=== PATIENT | male | born 1970 | race Caucasian/White ===

== ENCOUNTER 2021-05-03 08:45 | Outpatient (CLI) | payer MEDICARE, MEDICAID, SELFPAY ==
[2021-05-03 17:07] LABS: Creatinine Urine 120.5 mg/dL
[2021-05-03 17:12] LABS: MALB Creatinine Ratio 40.5 mg/g (0-30); Microalbumin Urine Random 48.8 mg/L (0-16.7)
[2021-05-03 19:14] LABS: Anion Gap 13 mmol/L (8-16); Blood Urea Nitrogen 16 mg/dL (9-20); Calcium 9.9 mg/dL (8.4-10.2); Carbon Dioxide 24 mmol/L (22-30); Chloride 102 mmol/L (98-107); Estimated Glomerular Filt Rate > 60; Glucose 130 mg/dL (75-110); HDL Direct 49 mg/dL; Potassium 4.2 mmol/L (3.4-5.0); Sodium 139 mmol/L (137-145)
[2021-05-03 19:38] LABS: LDL Cholesterol Direct 104 mg/dL
[2021-05-03 20:10] LABS: Vitamin B12 > 1000.0 pg/mL (239-931)
== END 2021-05-03 08:46 | disposition home or self-care (01) ==
LOC: ANHWCLAB 08:49
PROVIDERS: PCP Physician Assistant; Visit Provider Internal Medicine Endocrinology, Diabetes & Metabolism
DX: E11.9 Type 2 diabetes mellitus without complications (principal); E11.65 Type 2 diabetes mellitus with hyperglycemia; E53.8 Deficiency of other specified B group vitamins
CPT/HCPCS: 36415; 80048; 82043; 82607; 83718; 83721; 84443

== ENCOUNTER 2021-11-01 09:31 | Outpatient (CLI) | payer OTHER, SELFPAY ==
[2021-11-01 13:22] LABS: Alanine Aminotransferase 41 U/L (4-50); Albumin Level 4.4 g/dL (3.5-5.1); Alkaline Phosphatase 89 U/L (38-126); Anion Gap 9 mmol/L (8-16); Aspartate Amino Transferase 75 U/L (17-59); Bilirubin,Total 0.9 mg/dL (0.2-1.3); Blood Urea Nitrogen 17 mg/dL (9-20); Calcium 9.7 mg/dL (8.4-10.2); Carbon Dioxide 26 mmol/L (22-30); Chloride 99 mmol/L (98-107); Cholesterol 185 mg/dL (0-200); Estimated Glomerular Filt Rate > 60; Glucose 133 mg/dL (65-110); HDL Direct 41 mg/dL; Potassium 4.1 mmol/L (3.4-5.0); Sodium 134 mmol/L (137-145); Triglycerides 177 mg/dL (<150)
[2021-11-01 13:33] LABS: LDL Cholesterol Direct 99 mg/dL
[2021-11-01 13:38] LABS: Free T4 Free Thyroxine 1.03 ng/mL (0.78-2.19); Vitamin D 25 Hydroxy 19.5 ng/mL
[2021-11-01 13:59] LABS: Microalbumin Urine Random 62.5 mg/L (0-16.7)
[2021-11-01 14:00] LABS: Creatinine Urine 78.4 mg/dL; MALB Creatinine Ratio 79.7 mg/g (0-30)
[2021-11-01 14:21] LABS: Vitamin B12 > 1000.0 pg/mL (239-931)
== END 2021-11-01 09:32 | disposition home or self-care (01) ==
PROVIDERS: PCP Physician Assistant; Visit Provider Nurse Practitioner Family
DX: E11.65 Type 2 diabetes mellitus with hyperglycemia (principal); E11.9 Type 2 diabetes mellitus without complications; E53.8 Deficiency of other specified B group vitamins; E66.01 Morbid (severe) obesity due to excess calories; E78.5 Hyperlipidemia, unspecified; I10 Essential (primary) hypertension
CPT/HCPCS: 36415; 80053; 80061; 82043; 82306; 82607; 84439; 84443

== ENCOUNTER 2023-05-01 08:19 | Outpatient (CLI) | payer MEDICARE, MEDICAID, SELFPAY ==
--- NOTE | ~2023-05-01 | SLEEP.INT_ITS ---
Titration Report Patient Name: MARQUIS GARCIA Study Date: 05/01/2023 Referring Physician: Lacy Black PA-C- Indications for Polysomnography/Sleep History The patient is a 52 year-old male who is 6' and weighs 399.0 lbs. His BMI equals 54.6. A full night titration was performed to evaluate for an improved pressure. He has gained weight since his prior testing in 2008 with ah AH I of 100 with a weight of 340 lb, now 396 lb, was on CPAP 16 cm of water pressure. [place] is 11. Medical History Marquis Garcia is a 52-year-old man with hypertension and diabetes who currently uses CPAP 16 cm. He ra rely awakens from sleep feeling short of breath. He does not awaken at night with heartburn, belching or coughing . He does not snore and does not snore loudly while using his CPAP. He rarely has trouble sleeping with a cold. H e does not wake up gasping for breath at night. He does not have breathing problems at night observed by others. He does not sweat excessively at night or notice his heart pounding or beating irregularly at night. He always falls a sleep during the day, always falls asleep involuntarily, rarely falls asleep while driving. He does not have loss of muscl e tone with strong emotion. He does not have daytime difficulties due to excessive sleepiness. He does not feel paraly zed on waking or falling asleep. He occasionally has vivid dreamlike scenes upon awakening or falling asleep. He poe s not feel afraid to go to sleep. He does not have nightmares. He occasionally remembers his dreams. He rarely has raci ng thoughts. He does not feel sad, depressed, or anxious. He occasionally has muscular tension. He constantly notic es parts of his body jerking. He always kicks at night. He constantly has crawling and aching feelings in his legs. He constantly has leg pain during the night. He does not have morning jaw pain, does not grind his teeth during sleep. He occasionally is bothered by pain during the day. He frequently is awakened by pain during the night. He frequently wakes up feeling stiff in the morning with sore achy muscles and pain in the neck and spine. Normal bedtime is between 11:00 p.m. and 12 midnight, falling asleep within 45 minutes, typically wak ing 5 times during the night to go to the bathroom. It may take 30 minutes for him to return to sleep. He wakes the mo rning at 8:00 a.m.. He estimates getting 5 hours of sleep at night. He takes naps in the afternoon or evening. A short nap lasting 10 or 15 minutes is not refreshing. He is usually drowsy for 3 hours after waking. Feels better in the eveni ng compared to other times of day. Habits: Never smoked tobacco. Caffeine 2-3 servings a day. No alcohol. No recreational substance. Medications Polysomnogram Data A full night polysomnogram using the [facility] multi-channel system recorded the standard phys iologic parameters including EEG, EOG, submentalis EMG, anterior tibialis EMG, EKG, body position, nasal and oral airflow using nasal pressure sensor and thermistor. Respiratory parameters of chest and abdominal movements were recorded with Respiratory Inductance Plethysmography belts. Oxygen saturation was recorded by pulse oximetry. Video monitoring was also performed. Sleep stages, periodic limb movements, and EEG arousals were scored in 30 second epochs according to the criteria of the AASM Scoring Manual. The Apnea-Hypopnea Index was calculated using CMS guidelines for definition of hypopnea while scoring respiratory events. Sleep Architecture The total recording time of the polysomnogram was 457.3 minutes. The total sleep time was 246.5 ronaldo colt. The patient spent 10.1% of total sleep time in Stage N1, 31.8% in Stage N2, 33.1% in Stages N3, and 24.9% in REM. Sleep latency was 63.4 minutes. REM latency was 71.0 minutes. Sleep Efficiency was 53.9%. Wake after S
== END 2023-05-02 07:50 | disposition home or self-care (01) ==
LOC: ANHCSM 08:20
PROVIDERS: PCP Physician Assistant; Visit Provider Physician Assistant
DX: G47.33 Obstructive sleep apnea (adult) (pediatric) (principal); G25.81 Restless legs syndrome
CPT/HCPCS: 95811

== ENCOUNTER 2024-01-20 14:47 | Outpatient (CLI) | payer MEDICARE, MEDICAID, SELFPAY ==
[2024-01-20 17:16] LABS: Anion Gap 9 mmol/L (4-12); Blood Urea Nitrogen 21 mg/dL (9-20); Calcium 10.1 mg/dL (8.4-10.2); Carbon Dioxide 29 mmol/L (22-30); Chloride 99 mmol/L (98-107); Estimated Glomerular Filt Rate > 60; Glucose 202 mg/dL (65-110); HDL Direct 41 mg/dL; Potassium 4.6 mmol/L (3.4-5.0); Sodium 137 mmol/L (137-145)
[2024-01-20 17:28] LABS: LDL Cholesterol Direct 107 mg/dL
[2024-01-20 18:34] LABS: Creatinine Urine 39.9 mg/dL
[2024-01-20 18:38] LABS: MALB Creatinine Ratio 73.2 mg/g (0-30); Microalbumin Urine Random 29.2 mg/L (0-16.7)
[2024-01-20 19:04] LABS: Vitamin D 25 Hydroxy 49.3 ng/mL
== END 2024-01-20 14:48 | disposition home or self-care (01) ==
PROVIDERS: PCP Physician Assistant; Visit Provider Internal Medicine Endocrinology, Diabetes & Metabolism
DX: E78.5 Hyperlipidemia, unspecified (principal); R79.89 Other specified abnormal findings of blood chemistry; E11.65 Type 2 diabetes mellitus with hyperglycemia; E53.8 Deficiency of other specified B group vitamins; Z79.899 Other long term (current) drug therapy
CPT/HCPCS: 36415; 80048; 82043; 82306; 82607; 83718; 83721; 84443

== ENCOUNTER 2024-05-31 16:05 | Outpatient (CLI) | payer MEDICARE, MEDICAID, SELFPAY ==
[2024-05-31 17:08] LABS: Hematocrit 39.6 % (42.0-52.0); Hemoglobin 12.7 g/dL (14.0-18.0); Mean Corpuscular HGB Conc 32.1 g/dl (32-36); Mean Corpuscular Hemoglobin 29.5 pg (26-34); Mean Corpuscular Volume 91.9 fl (80-100); Mean Platelet Volume 9.9 fl (7.4-10.4); Platelet Count Result 200 k/mm3 (150-375); Red Blood Count 4.31 M/mm3 (4.6-6.20); Red Cell Distribution Width 13.1 % (11.5-14.5); White Blood Count 10.1 K/mm3 (4.5-10.0)
[2024-05-31 19:57] LABS: Alanine Aminotransferase 26 U/L (6-50); Albumin Level 4.5 g/dL (3.5-5.1); Alkaline Phosphatase 90 U/L (38-126); Anion Gap 14 mmol/L (4-12); Aspartate Amino Transferase 36 U/L (17-59); Bilirubin,Total 1.2 mg/dL (0.2-1.3); Blood Urea Nitrogen 28 mg/dL (9-20); Calcium 9.4 mg/dL (8.4-10.2); Carbon Dioxide 25 mmol/L (22-30); Chloride 99 mmol/L (98-107); Estimated Glomerular Filt Rate > 60; Glucose 95 mg/dL (65-110); Potassium 4.4 mmol/L (3.4-5.0); Sodium 138 mmol/L (137-145)
[2024-05-31 20:28] LABS: Prostate Specific Antigen 0.3 ng/mL (< OR = 4.0)
[2024-05-31 20:54] LABS: Vitamin B12 > 1000.0 pg/mL (239-931)
== END 2024-05-31 16:06 | disposition home or self-care (01) ==
LOC: ANHLAB 16:22
PROVIDERS: PCP Physician Assistant; Visit Provider Family Medicine
DX: Z12.5 Encounter for screening for malignant neoplasm of prostate (principal); E78.5 Hyperlipidemia, unspecified; I10 Essential (primary) hypertension; E53.8 Deficiency of other specified B group vitamins; E66.01 Morbid (severe) obesity due to excess calories; E66.9 Obesity, unspecified; Z68.43 Body mass index [BMI] 50.0-59.9, adult; G47.33 Obstructive sleep apnea (adult) (pediatric); I25.10 Atherosclerotic heart disease of native coronary artery without angina pectoris; R25.1 Tremor, unspecified; R79.89 Other specified abnormal findings of blood chemistry
CPT/HCPCS: 36415; 80053; 82607; 84153; 85027; G0103

== ENCOUNTER 2024-06-10 13:38 | Outpatient (CLI) | payer MEDICARE, MEDICAID, SELFPAY ==
[2024-06-10 15:54] LABS: Iron 117 ug/dL (49-181)
[2024-06-10 15:56] LABS: Vitamin B12 > 1000.0 pg/mL (239-931)
[2024-06-10 16:04] LABS: Percent Iron Saturation 36 % (20-50)
== END 2024-06-10 13:39 | disposition home or self-care (01) ==
PROVIDERS: PCP Physician Assistant; Visit Provider Family Medicine
DX: D64.9 Anemia, unspecified (principal); R79.89 Other specified abnormal findings of blood chemistry
CPT/HCPCS: 36415; 82607; 82728; 83540; 83550

== ENCOUNTER 2024-06-29 13:25 | Outpatient (CLI) | payer MEDICARE, MEDICAID, SELFPAY ==
[2024-06-29 14:18] LABS: Add Urine Microscopic? NO; Appearance Urine Clear (Clear); Bilirubin Urine Negative (Negative); Blood Urine Negative (Negative); Color Urine Yellow (Yellow); Glucose Urine UA 3+ mg/dL (Negative); Ketones Urine Negative (Negative); Leukocyte Esterase Ur Negative LEU/UL (Negative); Nitrate Urine Negative (Negative); Protein Urine Negative (Negative); Specific Grav Ur 1.019 (1.001-1.035); Urobilinogen Urine 0.2 mg/dL (<2.0); pH Urine 5.5 (5.0-9.0)
[2024-06-29 14:22] LABS: Hematocrit 38.4 % (42.0-52.0); Hemoglobin 12.4 g/dL (14.0-18.0); Immature Reticulocyte Fraction 14.7 % (3.0-15.9); Mean Corpuscular HGB Conc 32.3 g/dl (32-36); Mean Corpuscular Hemoglobin 29.8 pg (26-34); Mean Corpuscular Volume 92.3 fl (80-100); Mean Platelet Volume 10.3 fl (7.4-10.4); Platelet Count Result 196 k/mm3 (150-375); Red Blood Count 4.16 M/mm3 (4.6-6.20); Red Cell Distribution Width 13.2 % (11.5-14.5); Reticulocyte Hemoglobin Conten 31.9 pg (28.2-36.6); Reticulocyte Percent 2.24 % (0.7-4.3); Reticulocytes Absolute 0.09 10^6/uL (0.02-0.10); White Blood Count 9.1 K/mm3 (4.5-10.0)
== END 2024-06-29 13:26 | disposition home or self-care (01) ==
PROVIDERS: PCP Family Medicine; Visit Provider Nurse Practitioner Family
DX: D64.9 Anemia, unspecified (principal)
CPT/HCPCS: 36415; 81003; 85027; 85046

== ENCOUNTER 2025-02-01 00:47 | Day surgery (SDC) | payer MEDICARE, MEDICAID, SELFPAY ==
[2025-01-24 09:51] VITALS: BMI 54.2
--- OUTSIDE RECORDS SUMMARY | 2025-02-01 00:51 | XMS_ITS | Continuity of Care Document ---
Author Organization [facility] [place] [address] [facility] [address] [address] Phone Care Team Providers Care Die Storage Clerk Name Role Phone Bernardo Narvaez MD Unavailable Unavailable Allergies, Adverse Reactions, Alerts Substance Reaction Status Criticality No Known Allergies Active No Inform ation Medications Medication Instructions Dosage Effective Dates (start - stop) Status Comments lisinopril 40 mg tablet take 1 tablet by oral route every day 40 MG - Active furosemide 40 mg tablet take 3 tablet by oral route every day 120 MG - Active atenolol 50 mg tablet take 1 tablet by oral route every day 50 MG - Active atorvastatin 20 mg tablet take 1 tablet by oral route every day 20 MG - Active Humalog KwikPen (U-100) Insulin 100 unit/mL subcutaneous inject by subcutaneous route per prescriber's instructions. Insulin dosing requires individualization. 0.00 - Active Lantus Solostar U-100 Insulin 100 unit/mL (3 mL) subcutaneous pen inject by subcutaneous route as per insulin protocol 0.00 - Active metformin ER 1,000 mg tablet,extended release 24hr take 1 tablet by oral route 2 times every day with the evening meal 1000 MG - Active lisinopril 20 mg tablet take 1 tablet by oral route every day 20 MG - No Longer Active lisinopril 20 mg-hydrochlorothiaz will 25 mg tablet take 1 tablet by oral route 2 times every day 1 tablet - No Longer Active Procedures Procedure Date Eye Exam & Treatment Office/outpatient Visit, Est Removal Of Chalazion Office/outpatient Visit, New Advance Directives Directive Yes / No Effective Date File Name No Information Encounters Encounter Description Practice Location Reason(s) For Visit Diagnoses Date Provider Providers Copied on Encounter [facility], [address] [place] [address] [address], [place], [place], [id number], [place] tel:[phone] SEC [place] KSENIA Professional Complete Exam (chief complaint) History of cellulitisAge -related nuclear cataract, bilateralType 2 diabetes mellitus without complications Apr-0 - 9 Brice Chang. [address], [place], [place], [address], [place]. tel:[phone] Other Provider:, [address], [place], [address]. tel:[phone] ring Provider: Bernardo Reese, [address], [place], [address]. tel:[phone] [place] [facility] [place] [address] [place] [address] [address], [place], [place], [address], [place] tel:[phone] SEC Ignacio MCCORMACK Professional Follow up visit (chief complaint) Hordeolum externum of left upper eyelidPresept al cellulitis of left upper eyelid Oct-0 8 Brice Chang. [address], [place], [place], [address], [place]. tel:[phone] Referring Provider: Bernardo Reese [address], [place], [address]. tel:[phone] Office/outpa tient Visit, [facility] [place], [address] [place] [address] [address], [place], [place], [address], [place] tel:[phone] SEC Ignacio MCCORMACK Professional Evaluation of possible cyst (chief complaint) Preseptal cellulitis of left upper eyelidHordeol um externum of left upper eyelid Sep-2 8 Brice Chang. [address], [place], [place], [address], [place]. tel:[phone] Referring Provider: Veronica Peterson[address] [facility] [address], [place], [address]. tel:[phone] Family History Family Member Type Diagnosis Age At Onset Problem (finding) Family history of Diabe colt mellitus Payers Payer name Insurance type Covered libertarian ID Authoriza tion(s) Medicare [facility] [id number] Medicaid [facility] [id number] Social History Type Description Quantity Date Captured [...]
--- OUTSIDE RECORDS SUMMARY | 2025-02-01 00:51 | XMS_ITS | Clinical Summary ---
Author Organization [facility] Address [address] [place] [address] Care Team Providers Care Solutions Consultant Name Role Phone Ashok Hammer MD Primary Care Provider [phone] Allergies Active Allergy Reactions Criticality Noted Date Comments Shellfish Containing Products Medications allopurinoL (ZYLOPRIM) 100 mg tablet Take 1 tablet (100 mg total) by mouth daily for 20 days 20 tablet 0 Active acetaminophen (TYLENOL) 500 mg tablet Take 2 tablets (1,000 mg total) by mouth every 8 (eight) hours as needed for pain for up to 20 doses 40 tablet 1 Active metFORMIN (FORTAMET) 1,000 mg 24 hr tablet Take 1 tablet (1,000 mg total) by mouth daily with breakfast Active ezetimibe (ZETIA) 10 mg tablet Take 1 tablet (10 mg total) by mouth daily Active amLODIPine (NORVASC) 10 mg tablet Take 1 tablet (10 mg total) by mouth daily Active gabapentin (NEURONTIN) 300 mg capsule Take 1 capsule (300 mg total) by mouth nightly Active atorvastatin (LIPITOR) 80 mg tablet Take 1 tablet (80 mg total) by mouth daily Active lisinopriL (PRINIVIL,ZESTRI L) 40 mg tablet Take 1 tablet (40 mg total) by mouth daily Active dapagliflozin propanediol (FARXIGA) 10 mg tablet Take 1 tablet (10 mg total) by mouth daily Active cyanocobalamin (Vitamin B-12) 100 mcg tablet Take 1 tablet (100 mcg total) by mouth daily Active omega 3-amt-uam-fish oil 1,000 mg (120 mg-180 mg) capsule Take 1 capsule (1,000 mg total) by mouth daily Active cholecalciferol (VITAMIN D-3) 2000 unit tablet Take 1 tablet (2,000 Units total) by mouth daily Active semaglutide (Ozempic) 2 mg/dose (8 mg/3 mL) pen injector injection Inject 2 mg under the skin every 7 days Wednesdays Active insulin regular U-500 (HumuLIN R) 500 unit/mL CONCENTRATED vial for injection Inject 24 unit marking on U-100 syringe (120 Units total) under the skin daily before breakfast Active insulin regular U-500 (HumuLIN R) 500 unit/mL CONCENTRATED vial for injection Inject 11 unit marking on U-100 syringe (55 Units total) under the skin daily before lunch Active insulin regular U-500 (HumuLIN R) 500 unit/mL CONCENTRATED vial for injection Inject 14 unit marking on U-100 syringe (70 Units total) under the skin daily before dinner Active lidocaine (LIDODERM) 5 % Place 1 patch on the skin daily Remove & discard patch within 12 hours or as directed by MD. 14 patch 4 Active polyethylene glycol (MIRALAX) 17 gram/dose bulk powderIndication s:constipation Take 17 g by mouth 2 (two) times a day 1020 g 4 Active senna-docusate (PERICOLACE) 8.6-50 mg Take 1 tablet by mouth daily 30 tablet 4 Active propranolol LA (INDERAL LA) 160 mg 24 hr capsuleIndicatio ns:Tremor Take 1 capsule (160 mg total) by mouth daily 30 capsule 3 5 Active propranolol LA (INDERAL LA) 80 mg 24 hr capsule Take 1 capsule (80 mg total) by mouth daily 025 Discontin ued(Reord er) Active Problems Problem Noted Date Diagnosed Date Right upper quadrant pain 06/22/2024 Assessment & Plan (06/22/2024 3:45 AM CDT): RUQ w/ tenderness to palpation without any accompanying features. Differentials include PUD, gastritis, MSK strain, biliary colic/cholecystitis (unlikely given overall normal lab work), renal colic (unlikely given normal CT), acute pancreatitis (unlikely given normal lipase), or shingles infection given superficial tenderness/sensitivity to light touch. Another possible differential is lymphoma or other malignancy given right sided pelvic lymphadenopathy noted on admission CT scan. No other issues noted on CT. - RUQ US - NPO from midnight - Continue home Gabapentin 300 mg po qhs Type 2 diabetes mellitus, wi thout long-term current use of insulin 06/22/2024 Assessment & Plan (06/22/2024 3:44 AM CDT): Last HbA1c: unknown; BG 142 on admission Home regimen: Insulin u500: 26u w/ breakfast, 11u w/ lunch, 14u w/ dinner; metformin ER 1g po od, Farxiga 10 mg po od, ozempic 2mg sc qw - Pt placed on SSI - Lantus dose 46u qhs - Lispro 16 units qAC - Repeat A1c Essential hypertension 06/22/2024 Assessment & Plan (06/22/2024 3:44 AM CDT): BP stable on amlodipine 10 mg po od, lisinopril 40 mg po od, propanolol ER 80 mg po od - continue same Class 3 severe obesity with body mass index (BMI) of 50.0 to 59.9 in adult 06/22/2024 Chews tobacco 06/22/2024 Assessment & Plan (06/22/2024 3:05 AM CDT): Advised cessation OANH treated with BiPAP 06/22/2024 Assessment & Plan (06/22/2024 3:15 AM CDT): Stable; Continue BiPAP Lymphedema of both lower extremities 06/22/2024 Pelvic lymphadenopathy 06/22/2024 Assessment & Plan (06/22/2024 3:46 AM CDT): CT abdo/pelvis W contrast on admission: enlarged lymph nodes noted along the right pelvic side wall and iliac chain. The largest node measures 2.6 cm x 1.6 cm. 2nd 2.2 cm rounded node is seen also. - consider IR consult for Bx or MRI pelvis - check LDH Mixed hyperlipidemia 06/22/2024 Assessment & Plan (06/22/2024 3:44 AM CDT): Continue home Lipitor 80 mg po od, zetia 10 mg po od Constipation 06/22/2024 Encounters Date Type Department Care Team Description 01/10/2025 1:00 PM CDT Office Visit [facility] [address] [place] [address] [address], [place] [address] Scottie Sebastian MD Essential hypertension (Primary Dx); Tremor from Last 3 Months Surgical History Surgery Date Site/Laterality Comments NO PAST SURGERIES Medical History Medical History Date Comments Type 2 diabetes mellitus, wi thout long-term current use of insulin (HCC) 06/22/2024 Hypertension Class 3 severe obesity with body mass index (BMI) of 50.0 to 59.9 in adult (HCC) 06/22/2024 Essential hypertension 06/22/2024 OANH treated with BiPAP 06/22/2024 Chews tobacco 06/22/2024 Lymphedema of both lower extremities 06/22/2024 Social History Tobacco Use Types Packs/Day Years Used Date Smoking Tobacco: Never Smokeless Tobacco: Current Chew Tobacco Cessation:Ready to Q uit: Not Asked; Counseling Given: Not Answered [facility] Utilities Answer Date Recorded In the past 12 months has [employer], gas, oil, or water [employer] threatened to shut off services in your home? No 06/22/2024 Social Connection and Isolation Panel [NHANES] A nswer Date Recorded In a typical week, how many times do you talk on the phone with family, friends, or neighbors? Twice a week 06/22/20 How often do you get togethe r with friends or relatives? Twice a week 06/22/2024 How often do you attend [facility] ch or methodist services? Never 06/22/2024 Do you belong to any clubs o r organizations such as restoration groups, unions, fraternal or athletic groups, or school groups? No 06/22/2024 How often do you attend meet ings of the clubs or organizations you belong to? Never 06/22/2024 Are you , , di vorced, , never , or living with a partner? Living with partner 06/22/2024 Overall Financial Resource Strain (CARDIA) Answe r Date Recorded How hard is it for you to pa y for the very basics like food, housing, medical care, and heating? Not hard at all 06/22/2024 Hunger Vital Sign Answer Date Recorded Within the past 12 months, y ou worried that your food would run out before you got the money to buy more. Never true 06/22/20 Within the past 12 months, t he food you bought just didn't last and you didn't have money to get more. Never true 06/22/2024 PRAPARE - Transportation Answer Date Re corded In the past 12 months, has l ack of transportation kept you from medical appointments or from getting medications? No 12/2023 In the past 12 months, has l ack of transportation kept you from meetings, work, or from getting things needed for daily living? No 06/22/2024 Housing Stability Vital Sign Answer Curtis e Recorded In the last 12 months, was t here a time when you were not able to pay the mortgage or rent on time? No 06/22/2024 In the past 12 months, how m any times have you moved where you were living? 0 06/22/2024 At any time in the past 12 m [facility], were you homeless or living in a nursing home (including now)? No 06/22/2024 Personal Safety Answer Date Recorded Have you ever been in or are you currently in a harmful physical or emotional relationship or is someone making you feel afraid or unsafe? 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 Gender Identity Not on file Sexual Orientation Not on file Obstetrics History Last Filed Vital Signs Vital Sign Reading Time Taken Comments Blood Pressure 141/75 01/10/2025 1:00 PM CDT Pulse 93 01/10/2025 1:00 PM CDT Temperature 36.5 C (97.7 F) 06/23/2024 3:10 PM CDT Respiratory Rate 16 06/23/2024 3:10 PM CDT Oxygen Saturation 94% 01/10/2025 1:00 PM CDT Inhaled Oxygen Concentration - - Weight 182.9 kg (403 lb 3.2 oz) 01/10/2025 1:00 PM CDT Height 182.9 cm (6' 0.01 ) 01/10/2025 1:00 PM CD T Body Mass Index 54.67 01/10/2025 1:00 PM CDT Plan of Treatment Health Maintenance Due Date Last Done Comments Albumin Creatinine Ratio, Urine 1969 Colon Cancer Screening-Colonoscopy 1969 Depression Screening 1969 Hepatitis C Screening 1969 Prostate Cancer Screening-PSA 1969 Dilated Eye Exam 1969 Foot Exam 1969 Lipid Panel 1969 DTaP/Tdap/Td Vaccine (1 - Tdap) 1980 Hepatitis B Screening 1987 Regular Well Visit/Exam 18-64 1987 Pneumococcal vaccine <65 (1 of 2 - PCV) 1988 Zoster Vaccine (1 of 2) 2019 Influenza Vaccine (#1) 2024 Hemoglobin A1C 12/20/2024 06/22/2024 eGFR 06/23/2025 06/23/2024, 0912/2023, 06/21/2024, Additional history exists Procedures Procedure Name Priority Date/Time Associated Diagnosis Comments EGFR Routine 06/23/2024 6:17 AM CDT HEMOGLOBIN A1C Add-On 06/22/2024 4:32 AM CDT from Last 3 Months or Most Recently Relevant to Health Maintenance Results * eGFR (06/23/2024 6:17 AM CDT) eGFR >90 >=60 mL/min/1. 73 m2 Comment: Interpretive Data Reference Interval Normal >/= 90 mL/min/1.73m2 Mildly decreased* 60 - 89 mL/min/1.73m2 Mildly to moderately decreased 45 - 59 mL/min/1.73m2 Moderately to severely decreased 30 - 44 mL/min/1.73m2 Severely decreased 15 - 29 mL/min/1.73m2 Kidney Failure < 15 mL/min/1.73m2 *Relative to young adult level Estimated glomerular filtration rate is determined by the 2020 CKD-EPI equation recommended by the National Kidney Foundation (A Unifying Approach to GFR Estimation: Recommendations of the NKF-ASK Task Force on Reassessing the Inclusion of Race in Diagnosing Kidney Disease, JASN 2020). The CKD-EPI equation should not be used for patients with unstable renal function and has not been validated in children and those over 70. Current interpretive data was last reviewed 2021. Blood 06/23/2024 6:17 AM CDT 06/23/2024 6:19 AM CDT Selam Garcia MD LAB BLOOD ORDERABLES Fin al Result Performing Organization Address [facility] Co de Phone Number [facility]KE [facility] [facility] [address] [place] [address] * (ABNORMAL) Hemoglobin A1c (06/22/2024 4:32 AM CDT) Hgb A1C 6.7(H) 4.0 - 5.6 % Estimated Average Glucose 146 mg/dL MIKE GUTIERRE[facility] ([place]) Comment: The ADA recommends reporting an estimated Average Glucose (eAG) with all Hemoglobin A1c results using the equation derived from a study of 507 normal and diabetic adults. Minority populations were underrepresented and children were not included. (Diabetes Care 31:9129-4862, 2008). The eAG is not equivalent to a fasting glucose. Blood 06/22/2024 4:32 AM CDT 06/22/2024 4:45 AM CDT Selam Garcia MD LAB BLOOD ORDERABLES Fin al Result Performing Organization Address [facility] Co de Phone Number MIKE [facility] [facility] [address] [place] [address] from Last 3 Months or Most Recently Relevant to Health Maintenance Insurance IDPA MEDICARE IDPA IDPA Advance Directives For more information, please contact: [phone] * Full Code (Latest Code Status on File) Date Activated Date Inactivated Comments 06/22/2024 3:25 AM 06/23/2024 9:17 PM Care Teams Solutions Consultant Relationship Specialty Start Date End Date Ashok Hammer MD PCP - General Family Practice 06/21/24
--- OUTSIDE RECORDS SUMMARY | 2025-02-01 00:51 | XMS_ITS | Encounter Summary ---
Author Organization [facility] Healthcare Address [facility] [place] [address] Care Team Providers Care Community Living Specialist Name Role Phone Augustine Sims Primary Care Provider [phone] Ashok Hammer MD Primary Care Provider [phone] Encounter Details Date Type Department Care Team (Late st Contact Info) Description 04/20/[address] [address] Sandi Sidhu, [facility] Social History Tobacco Use Types Packs/Day Years Used Date Smoking Tobacco: Never Sex and Gender Information Value Date Recorded Sex Assigned at Not on file 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
--- OUTSIDE RECORDS SUMMARY | 2025-02-01 00:51 | XMS_ITS | Referral Summary ---
Author Organization [facility] Address [address] [place] [address] Care Team Providers Care Wharf Operator Name Role Phone Ashok Hammer MD Primary Care Provider [phone] Encounters Date Type Department Care Team Description 01/10/2025 1:00 PM CDT Office Visit [facility] [address] [facility] [address] [place] [address] Scottie Sebastian MD Essential hypertension (Primary Dx); Tremor from Last 3 Months Allergies Active Allergy Reactions Criticality Noted Date [...] mcg total) by mouth daily Active omega 1-cnb-uec-fish oil 1,000 mg (120 mg-180 mg) capsule [...] within 12 hours or as directed by . 14 patch 4 Active polyethylene glycol (MIRALAX) [...] po qhs Type 2 diabetes mellitus, wi out long-term current use of insulin 06/22/2024 Assessment [...] zetia 10 mg po od Constipation 06/22/2024 Social History Tobacco Use Types Packs/Day Years Used Date Smoking Tobacco: Never Smokeless Tobacco: Current Chew Tobacco Cessation:Ready to Q uit: Not Asked; Counseling Given: Not Answered [facility] Utilities Answer Date Recorded In the past 12 months has th [employer], gas, oil, or water [employer] threatened to shut off services in your home? No 06/22/2024 Social Connection and Isolation Panel [NHANES] A nswer Date Recorded In a typical week, how many times do you talk on the phone with family, friends, or neighbors? Twice a week 06/22/20 How often do you get togethe r with friends or relatives? Twice a week 06/22/2024 How often do you attend chur ch or restorationist services? Never 06/22/2024 Do you belong to any clubs o r organizations such as adventist groups, unions, fraternal or athletic groups, or [...] money to buy more. Never true 06/22/20 24 Within the past 12 months, t he [...] any time in the past [facility], were you homeless or living in a nursing home (including now)? No 06/22/2024 Personal Safety Answer Date Recorded Have you ever been in or are you currently in a harmful physical or emotional relationship or is someone making you feel afraid or unsafe? 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 Gender Identity Not on file Sexual Orientation Not on file Last Filed Vital Signs Vital Sign Reading [...] 01/10/2025 1:00 PM CDT Plan of Treatment Not on file Procedures Procedure Name Priority Date/Time Associated Diagnosis [...] MD LAB BLOOD ORDERABLES Fin al Result MIKE BRENDA ([place]) [address] [facility] Department of Laboratories [place], [place] [id number] * (ABNORMAL) Hemoglobin A1c (06/22/2024 4:32 AM CDT) Hgb A1C 6.7(H) 4.0 - 5.6 % Estimated Average Glucose 146 mg/dL MIKE GUTIERREZ ([place]) Comment: The ADA recommends reporting an estimated Average Glucose (eAG) with all Hemoglobin A1c results using the equation derived from a study of 507 normal and diabetic adults. Minority populations were underrepresented and children were not included. (Diabetes Care 31:7636-4467, 2008). The eAG is not equivalent to a fasting glucose. Blood 06/22/2024 4:32 AM CDT 06/22/2024 4:45 AM CDT Selam Garcia MD LAB BLOOD ORDERABLES Fin al Result [facility] [address] [facility] Department [place] [id number] from Last 3 Months or Most Recently Relevant to Health Maintenance Insurance MEDICARE IDDC [facility] MEDICARE ADVANTAGE IDPA Advance Directives For more information, please contact: [phone] * Full Code (Latest Code Status on File) Date Activated Date Inactivated Comments 06/22/2024 3:25 AM 06/23/2024 9:17 PM Care Teams Wharf Operator Relationship Specialty Start Date End Date Ashok Hammer MD PCP - General Family Practice 06/21/24
--- OUTSIDE RECORDS SUMMARY | 2025-02-01 00:51 | XMS_ITS | Clinical Summary ---
Author Organization [facility] Address [address] [place] [address] Phone Care Team Providers Care Computer Repair Engineer Name Role Phone Provider, None Primary Care Provider Unavailabl e Allergies Active Allergy Reactions Criticality Noted Date Comments Iodinated Contrast Media Shortness of Breath Medications lovastatin (MEVACOR) 20 MG Tablet Take 20 mg by mouth daily. Active lisinopril-hydr ochlorothiazide (PRINZIDE, ZESTORETIC) 20-25 MG Tablet Take 1 Tab by mouth daily. Active atenolol (TENORMIN) 50 MG Tablet Take 50 mg by mouth daily. Active linagliptin (TRADJENTA) 5 MG Tablet Take 5 mg by mouth daily. Active insulin detemir (LEVEMIR) 100 UNIT/ML Solution 85 Units by Subcutaneous route nightly. Active [place]-3 Fatty Acids (FISH OIL) 1200 MG Capsule Take 1,200 mg by mouth daily. Active lisinopril (PRINIVIL, ZESTRIL) 20 MG Tablet Take 20 mg by mouth daily. Active metFORMIN (GLUCOPHAGE) 1000 MG Tablet Take 1,000 mg by mouth 2 times daily (with meals). Active Insulin Lispro (HUMALOG KWIKPEN SC)Indications: BREAKFAST AND LUNCH 20 Units by Subcutaneous route See Admin Instructions. Active Insulin Lispro (HUMALOG KWIKPEN SC)Indications: SUPPER 25 Units by Subcutaneous route See Admin Instructions. Active tiZANidine (ZANAFLEX) 2 MG Tablet Take 1 Tab by mouth 3 times daily as needed. 15 Tab 7 Active traMADol (ULTRAM) 50 MG Tablet Take 1 Tab by mouth every 6 hours as needed for Pain for up to 15 doses. 15 Tab 7 Active Insulin Glargine (LANTUS SC) 85 Units by Subcutaneous route. Active atorvastatin (LIPITOR) 20 MG Tablet Take 20 mg by mouth daily. Active ibuprofen (MOTRIN) 600 MG Tablet Take 1 Tab by mouth every 6 hours as needed for Moderate or more severe pain. 30 Tab 9 Active Active Problems Problem Noted Date Diagnosed Date Puncture wound of calf 09/07/2015 Wound of right leg 08/29/2015 Family History Medical History Relation Name Comments Migraines Brother High Cholesterol Father Hypertension Father High Cholesterol Maternal Uncle Congestive Heart Failure Mother Diabetes Mother Heart Attack Mother Hypertension Mother Migraines Mother Migraines Sister Relation Name Status Comments Brother Father Maternal Uncle Mother Sister Social History Tobacco Use Types Packs/Day Years Used Date Smoking Tobacco: Never Smokeless Tobacco: Current Snuff, Chew Alcohol Use Standard Drinks/Week Comments Yes 0 (1 standard drink = 0.6 oz pur e alcohol) VERY RARELY. Sex and Gender Information Value Date Recorded Sex Assigned at Not on file Legal Sex Male 8:02 PM CDT Gender Identity Not on file Sexual Orientation Not on file Last Filed Vital Signs Vital Sign Reading Time Taken Comments Blood Pressure 107/91 01/26/2022 10:30 PM CDT Pulse 100 01/26/2022 10:30 PM CDT Temperature 36.6 C (97.9 F) 01/26/2022 7:38 PM CDT Respiratory Rate 22 01/26/2022 10:15 PM CDT Oxygen Saturation 93% 01/26/2022 10:30 PM CDT Inhaled Oxygen Concentration - - Weight 179.2 kg (395 lb) 01/26/2022 7:38 PM CDT Height 182.9 cm (6') 01/26/2022 7:38 PM CDT Body Mass Index 53.57 01/26/2022 7:38 PM CDT Plan of Treatment Health Maintenance Due Date Last Done Comments Hepatitis C Virus (HCV) Screening 1969 TdaP Immunization 1969 Hepatitis B Immunization (1 of 3 - 19+ 3-dose series) 1988 Colonoscopy 2014 Colorectal Cancer Screening 2014 Cologuard 2019 Immunochemical Fecal Occult Blood 2019 Pneumococcal Immunization (5 0+ years) (1 of 1 - PCV) 2019 Zoster Immunization (1 of 2) 2019 Influenza Immunization (#1) 2024 SARS-COV-2 Immunization (1 - 2023-25 season) 2024 Respiratory Syncytial Virus (RSV) Immunization (Adult) (1 - 1-dose 75+ series) 2044 Meningococcal Immunization (ACWY) Aged Out No longer eligible based on patient's age to complete this topic Rotavirus Immunization Aged Out No lo nger eligible based on patient's age to complete this topic Insurance MEDICAID [place] MEDICARE C [employer] Care Teams Computer Repair Engineer Relationship Specialty Start Date End Date Provider, None [place] PCP - General 01/26/22
[2025-02-01 08:54] VITALS: BP 157/61; PULSE 74; RESP 16; TEMP 36; O2SAT 98
--- NOTE | 2025-02-01 08:59 | P.PNAN_ITS ---
Anes - Initial Pre Proc Eval Procedure: Operation Date: 02/01/25 10:00 Proposed Procedures p Screening Colonoscopy - Rosendo Luacs MD Date/Time: 02/01/25 08:59 Surgeon: Rosendo Lucas MD Pre Op Diagnosis: screening colon Patient Data Age: 54 Gender: M Height: 1.83 m Weight: 183.2 kg Last Vital Signs Temp 36.0 C L 02/01/25 08:54 Pulse 74 02/01/25 08:54 Resp 16 02/01/25 08:54 BP 157/61 H 02/01/25 08:54 Pulse Ox 98 02/01/25 08:54 O2 Del Method Room Air 02/01/25 08:54 Allergies Allergy/AdvReac Type Severity Reaction Status Date / Time iodine Allergy Unknown Flushing Verified 02/01/25 08:50 shellfish Allergy Severe Anaphylactic Uncoded 02/01/25 08:50 Shock Home Medications ?Medication ?Instructions ?Recorded ?Confirmed ?Type omega-3 fatty acids 1,000 mg 1,000 mg PO DAILY 09/06/19 02/01/25 History capsule (Fish Oil Concentrate) cholecalciferol (vitamin D3) 50 50 mcg PO DAILY 07/01/22 02/01/25 History mcg (2,000 unit) capsule pen needle, diabetic 31 gauge x #300 ea 07/22/23 01/24/25 Rx 3/16 (BD Ultra-Fine Mini Pen Needle) gabapentin 300 mg capsule 300 mg PO QHS #30 caps 05/31/24 01/24/25 Rx propranolol 80 mg capsule,24 80 mg PO DAILY #30 caps 05/31/24 02/01/25 Rx hr,extended release flash glucose sensor (FreeStyle #6 ea 07/02/24 01/24/25 Rx Rogerio 14 Day Sensor kit) semaglutide 2 mg/dose (8 mg/3 mL) See Rx Instructions .Route 07/20/24 02/01/25 Rx subcutaneous pen injector (Ozempic) .COMPLEX #9 mL ezetimibe 10 mg tablet See Rx Instructions .Route 08/25/24 02/01/25 Rx .COMPLEX #90 tabs Farxiga 10 mg tablet See Rx Instructions .Route 10/04/24 02/01/25 Rx (dapagliflozin propanediol) .COMPLEX #90 tabs atorvastatin 80 mg tablet See Rx Instructions .Route 10/04/24 02/01/25 Rx .COMPLEX #90 tabs insulin regular hum U-500 conc 500 See Rx Instructions .Route 11/01/24 02/01/25 Rx unit/mL(3 mL) subcut pen (Humulin .COMPLEX #45 mL R U-500 (Conc) Insulin Kwikpen) metformin 1,000 mg tablet See Rx Instructions .Route 11/02/24 02/01/25 Rx .COMPLEX #90 tabs lisinopril 40 mg tablet See Rx Instructions .Route 12/21/24 02/01/25 Rx .COMPLEX #90 tabs amlodipine 10 mg tablet See Rx Instructions .Route 12/27/24 02/01/25 Rx .COMPLEX #90 tabs hydrochlorothiazide 12.5 mg tablet 12.5 mg PO DAILY #90 tabs 01/31/25 02/01/25 Rx Patient hx anesthesia problems: none Family hx anesthesia problems: none Results Review: All pre-operative results and documents have been reviewed as part of the pre- operative evaluation. [facility] Past Medical History Medical History CAD (coronary artery disease) Lymphedema Tremor of both hands Muscular deconditioning Low vitamin D level Hyperlipidemia LDL goal <100 Hypertension BMI 50.0-59.9, adult Cellulitis of left foot Vitamin B12 deficiency Type 2 diabetes mellitus with hyperglycemia Family History Family History Other Depression Diabetes mellitus Family history of alcoholism Family history of cardiovascular disease Family history of congestive heart failure Family history of obesity Hypertension Social History Social History Smoking status: Never smoker Tobacco type: smokeless tobacco Smokeless tobacco user: chewing tobacco Alcohol intake: never Substance use: never Substance use type: does not use Lack of Transportation: No Lack of Food: Never True Current Housing: I Have Housing Concerned About Future Housing: No Difficulty Paying Gas/Electric Bills: No Difficulty Paying for Meds: No Currently Unemployed: No Education: High School Diploma/GED Difficulty w/ Childcare or Family Care: No Living arrangements: with family Gender identity (if verbalized by the patient): Male Spiritual care concerns: No Anes - Eval Final PreProcedure Day of Procedure 02/01/25 08:59 Patient weight: super morbidly obese Heart: regular rate and rhythm Lungs: decreased breath sounds Airway: Mallampati scale class III Neurological: alert and oriented Last oral intake: >/= 8 hours ASA classification: III Emergent: no Anesthetic plan: proceed Anesthesia type and monitoring: general GIVS and standard monitoring Results Review: All pre-operative results and documents have been reviewed as part of the pre- operative evaluation. Informed Consent: The patient's anesthetic plan and its attendant risks and benefits were discussed with the patient/family/POA. Questions were solicited and answers provided to the satisfaction of the patient/family/POA.
[2025-02-01] MEDS: LACTATED RINGERS 1,000 ML 150 ML IV CONT (09:06)
--- NOTE | 2025-02-01 09:21 | PM.HPGS ---
History of Present Illness History of Present Illness Consent: Risks, benefits, and alternatives have been discussed and questions answered. Patient agrees to proceed with procedure. Chief complaint: screening colon Narrative: Marquis Garcia is a 54 year old male here for first screening colonoscopy Review of Systems Review of Systems: All systems reviewed & are unremarkable except as noted in HPI and below PMFSH Past Medical History Medical History CAD (coronary artery disease) Lymphedema Tremor of both hands Muscular deconditioning Low vitamin D level Hyperlipidemia LDL goal <100 Hypertension BMI 50.0-59.9, adult Cellulitis of left foot Vitamin B12 deficiency Type 2 diabetes mellitus with hyperglycemia Family History Family History Other Depression Diabetes mellitus Family history of alcoholism Family history of cardiovascular disease Family history of congestive heart failure Family history of obesity Hypertension Social History Social History Smoking status: Never smoker Tobacco type: smokeless tobacco Smokeless tobacco user: chewing tobacco Alcohol intake: never Substance use: never Substance use type: does not use Lack of Transportation: No Lack of Food: Never True Current Housing: I Have Housing Concerned About Future Housing: No Difficulty Paying Gas/Electric Bills: No Difficulty Paying for Meds: No Currently Unemployed: No Education: High School Diploma/GED Difficulty w/ Childcare or Family Care: No Living arrangements: with family Gender identity (if verbalized by the patient): Male Spiritual care concerns: No Meds Home Medications and Allergies Home Medications ?Medication ?Instructions ?Recorded ?Confirmed ?Type omega-3 fatty acids 1,000 mg 1,000 mg PO DAILY 09/06/19 02/01/25 History capsule (Fish Oil Concentrate) cholecalciferol (vitamin D3) 50 50 mcg PO DAILY 07/01/22 02/01/25 History mcg (2,000 unit) capsule pen needle, diabetic 31 gauge x #300 ea 07/22/23 01/24/25 Rx 3/16 (BD Ultra-Fine Mini Pen Needle) gabapentin 300 mg capsule 300 mg PO QHS #30 caps 05/31/24 01/24/25 Rx propranolol 80 mg capsule,24 80 mg PO DAILY #30 caps 05/31/24 02/01/25 Rx hr,extended release flash glucose sensor (FreeStyle #6 ea 07/02/24 01/24/25 Rx Rogerio 14 Day Sensor kit) semaglutide 2 mg/dose (8 mg/3 mL) See Rx Instructions .Route 07/20/24 02/01/25 Rx subcutaneous pen injector (Ozempic) .COMPLEX #9 mL ezetimibe 10 mg tablet See Rx Instructions .Route 08/25/24 02/01/25 Rx .COMPLEX #90 tabs Farxiga 10 mg tablet See Rx Instructions .Route 10/04/24 02/01/25 Rx (dapagliflozin propanediol) .COMPLEX #90 tabs atorvastatin 80 mg tablet See Rx Instructions .Route 10/04/24 02/01/25 Rx .COMPLEX #90 tabs insulin regular hum U-500 conc 500 See Rx Instructions .Route 11/01/24 02/01/25 Rx unit/mL(3 mL) subcut pen (Humulin .COMPLEX #45 mL R U-500 (Conc) Insulin Kwikpen) metformin 1,000 mg tablet See Rx Instructions .Route 11/02/24 02/01/25 Rx .COMPLEX #90 tabs lisinopril 40 mg tablet See Rx Instructions .Route 12/21/24 02/01/25 Rx .COMPLEX #90 tabs amlodipine 10 mg tablet See Rx Instructions .Route 12/27/24 02/01/25 Rx .COMPLEX #90 tabs hydrochlorothiazide 12.5 mg tablet 12.5 mg PO DAILY #90 tabs 01/31/25 02/01/25 Rx Allergies Allergy/AdvReac Type Severity Reaction Status Date / Time iodine Allergy Unknown Flushing Verified 02/01/25 08:50 shellfish Allergy Severe Anaphylactic Uncoded 02/01/25 08:50 Shock Vital Signs Vital Signs - 24 hr 02/01/25 08:54 Temperature 96.8 F L Pulse Rate 74 Respiratory Rate 16 Blood Pressure 157/61 H Pulse Oximetry 98 Oxygen Delivery Room Air Exam Const: General: comfortable and no acute distress HENMT: Face/Nose/Sinus: Normal nares present Eyes: General: appearance normal, both eyes and all related structures Neck: Neck: no JVD Resp: Auscultation: clear to auscultation bilaterally Cardio: Rate: regular rate Rhythm: regular rhythm GI: Inspection: non-distended GI Palp: Yes Soft to palpation Skin: General skin exam: normal color Neuro: Speech: normal speech Extrem: General: normal to inspection Psych: Mental Status: mental status grossly normal Assessment and Plan Assessment and plan (1) Colon cancer screening: Code(s): Z12.11 - Encounter for screening for malignant neoplasm of colon Status: Acute Assessment and Plan: colonoscopy
[2025-02-01 09:24] LABS: Glucose Point of Care 177 mg/dl (65-105)
[2025-02-01 09:42] VITALS: BP 104/50; PULSE 71; RESP 22; O2SAT 100
[2025-02-01 09:52] VITALS: BP 105/51; PULSE 70; RESP 23; O2SAT 99
[2025-02-01 10:02] VITALS: BP 127/63; PULSE 72; RESP 18; O2SAT 99
[2025-02-01 10:15] LABS: Glucose Point of Care 176 mg/dl (65-105)
== END 2025-02-01 10:23 | disposition home or self-care (01) ==
PROVIDERS: PCP Family Medicine; Referring Provider Family Medicine; Visit Provider Internal Medicine Gastroenterology
PROC: 0DJD8ZZ Inspection of Lower Intestinal Tract, Via Natural or Artificial Opening Endoscopic (ICD-10-PCS; CPT 45378; principal; 2025-02-01 10:00)
DX: Z12.11 Encounter for screening for malignant neoplasm of colon (principal); D12.3 Benign neoplasm of transverse colon; D12.4 Benign neoplasm of descending colon; D12.5 Benign neoplasm of sigmoid colon; E78.5 Hyperlipidemia, unspecified; I10 Essential (primary) hypertension; E53.8 Deficiency of other specified B group vitamins; E11.65 Type 2 diabetes mellitus with hyperglycemia; I25.10 Atherosclerotic heart disease of native coronary artery without angina pectoris; E55.9 Vitamin D deficiency, unspecified; R25.1 Tremor, unspecified; F17.220 Nicotine dependence, chewing tobacco, uncomplicated; E66.01 Morbid (severe) obesity due to excess calories; Z68.43 Body mass index [BMI] 50.0-59.9, adult; Z79.85 Long-term (current) use of injectable non-insulin antidiabetic drugs; Z79.84 Long term (current) use of oral hypoglycemic drugs; Z79.4 Long term (current) use of insulin; Z82.49 Family history of ischemic heart disease and other diseases of the circulatory system
CPT/HCPCS: 45385; 82948; 88305; J2704; J7120

== ENCOUNTER 2025-03-22 14:11 | Outpatient (CLI) | payer MEDICARE, MEDICAID, SELFPAY ==
--- OUTSIDE RECORDS SUMMARY | 2025-03-22 14:15 | XMS_ITS | Clinical Summary ---
Author Organization [facility] Address [address] [place] [address] Care Team Providers Care Bad Credit Collector Name Role Phone Ashok Hammer MD Primary Care Provider [phone] Allergies Active Allergy Reactions Criticality Noted Date [...] mg total) by mouth daily Active lisinopriL (PRINIVIL,ZESTRIL ) 40 mg tablet Take 1 tablet (40 mg total) by mouth daily Active dapagliflozin propanediol (FARXIGA) 10 mg tablet Take 1 tablet (10 mg total) by mouth daily Active cyanocobalamin (Vitamin B-12) 100 mcg tablet Take 1 tablet (100 mcg total) by mouth daily Active omega 1-ggu-syq-fish oil 1,000 mg (120 mg-180 mg) capsule [...] Active polyethylene glycol (MIRALAX) 17 gram/dose bulk powderIndications :constipation Take 17 g by mouth 2 (two) times a day 1020 g 4 Active senna-docusate (PERICOLACE) 8.6-50 mg Take 1 tablet by mouth daily 30 tablet 4 Active propranolol LA (INDERAL LA) 160 mg 24 hr capsuleIndication s:Tremor Take 1 capsule (160 mg total) by mouth daily 30 capsule 3 5 Active Active Problems Problem Noted Date Diagnosed [...] Description 01/10/2025 1:00 PM CDT Office Visit [facility] [address] [place] [address] Scottie Sebastian MD Essential hypertension (Primary Dx); Tremor from Last 3 Months Surgical History Surgery Date Site/Laterality Comments NO PAST SURGERIES Medical History Medical History Date Comments Type 2 diabetes mellitus, wi thout long-term current use of insulin (HCC) 06/22/2024 Hypertension Class 3 severe obesity with body mass index (BMI) of 50.0 to 59.9 in adult 06/22/2024 Essential hypertension 06/22/2024 OANH treated with BiPAP 06/22/2024 Chews tobacco 06/22/2024 Lymphedema of both lower extremities 06/22/2024 Social History Tobacco Use Types Packs/Day Years Used Date Smoking Tobacco: Never Smokeless Tobacco: Current Chew Tobacco Cessation:Ready to Q uit: Not Asked; Counseling Given: Not Answered [facility] Utilities Answer Date Recorded In the past 12 months has th e [employer], gas, oil, or water company threatened to shut off services in your [...] often do you attend chur ch or voodoo services? Never 06/22/2024 Do you belong to any clubs o r organizations such as muslim groups, unions, fraternal or athletic groups, or [...] any time in the past 12 m [facility], were you homeless or living in a long term (including now)? No 06/22/2024 Personal Safety Answer Date Recorded Have you ever been in or are you currently in a harmful physical or emotional relationship or is someone making you feel afraid or unsafe? 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 [address] * (ABNORMAL) Hemoglobin A1c (06/22/2024 4:32 AM CDT) Hgb A1C 6.7(H) 4.0 - 5.6 % Estimated Average Glucose 146 mg/dL MIKE GUTIERREZ ([place]) Comment: The ADA recommends reporting an estimated Average Glucose (eAG) with all Hemoglobin A1c results using the equation derived from a study of 507 normal and diabetic adults. Minority populations were underrepresented and children were not included. (Diabetes Care 31:3558-8174, 2008). The eAG is not equivalent to a fasting glucose. Blood 06/22/2024 4:32 AM CDT 06/22/2024 4:45 AM CDT Selam Garcia MD LAB BLOOD ORDERABLES Fin al Result Performing Organization Address [facility] Co de Phone Number MIKE GUTIERREZ ([place]) 1 [facility] [place] [address] from Last 3 Months or Most Recently Relevant to Health Maintenance Insurance [employer]PA MEDICARE [facility] Address: [address] [address] [place] [address] IDPA [facility] MEDICARE [facility] Address: [address] [address] [place] [address] IDPA Advance Directives For more information, please contact: [phone] * Full Code (Latest Code Status on File) Date Activated Date Inactivated Comments 06/22/2024 3:25 AM 06/23/2024 9:17 PM Care Teams Bad Credit Collector Relationship Specialty Start Date End Date Ashok Hammer MD PCP - General Family Practice 06/21/24
--- OUTSIDE RECORDS SUMMARY | 2025-03-22 14:15 | XMS_ITS | Referral Summary ---
Author Organization [facility] Address [address] [place] [address] Care Team Providers Care Tour Operator Name Role Phone Ashok Hammer MD Primary Care Provider [phone] Encounters Date Type Department Care Team Description 01/10/2025 1:00 PM CDT Office Visit [facility] [address] [facility] [address] [place] [address] Scottie Sebastian MD Essential hypertension [...] mcg total) by mouth daily Active omega 1-bwy-yla-fish oil 1,000 mg (120 mg-180 mg) capsule [...] po qhs Type 2 diabetes mellitus, wi [facility] long-term current use of insulin 06/22/2024 Assessment [...] uit: Not Asked; Counseling Given: Not Answered [facility] Utilities Answer Date Recorded In the past 12 months has th e [employer], [employer], oil, or water [employer] threatened to shut off services in your [...] often do you attend chur ch or denominational services? Never 06/22/2024 Do you belong to any clubs o r organizations such as pentecostal groups, unions, fraternal or athletic groups, or [...] any time in the past 12 m [facility], were you homeless or living in a fpc (including now)? No 06/22/2024 Personal Safety Answer Date Recorded Have you ever been in or are you currently in a harmful physical or emotional relationship or is someone making you feel afraid or unsafe? 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 Gender Identity Not on file Sexual Orientation [...] ORDERABLES Fin al Result Performing Organization Address City/[facility] Co de Phone Number MIKE [facility] ([place]) 1 [facility] [place] [address] * (ABNORMAL) Hemoglobin A1c (06/22/2024 4:32 AM CDT) [facility] Signature Hgb A1C 6.7(H) 4.0 - 5.6 % Estimated Average Glucose 146 mg/dL MIKE GUTIERREZ ([place]) Comment: The ADA recommends reporting an estimated Average Glucose (eAG) with all Hemoglobin A1c results using the equation derived from a study of 507 normal and diabetic adults. Minority populations were underrepresented and children were not included. (Diabetes Care 31:3796-0154, 2008). The eAG is not equivalent to a fasting glucose. Blood 06/22/2024 4:32 AM CDT 06/22/2024 4:45 AM CDT Selam Garcia MD LAB BLOOD ORDERABLES Fin al Result Performing Organization Address City/[facility]/ZIP Co de Phone Number MIKE GUTIERREZ ([place]) 1 [facility] [place] [address] from Last 3 Months or Most Recently Relevant to Health Maintenance Insurance [facility] [employer] U[employer] MEDICARE ADVANTAGE IDPA Advance Directives For more information, please contact: [phone] * Full Code (Latest Code Status on File) Date Activated Date Inactivated Comments 06/22/2024 3:25 AM 06/23/2024 9:17 PM Care Teams Tour Operator Relationship Specialty Start Date End Date Ashok Hammer MD PCP - General Family Practice 06/21/24
--- OUTSIDE RECORDS SUMMARY | 2025-03-22 14:15 | XMS_ITS | Clinical Summary ---
Author Organization [facility] Address [address] [place] [address] Phone Care Team Providers Care Hvac Design Engineer Name Role Phone Provider, None Primary [...] 85 Units by Subcutaneous route nightly. Active [place]am[place]-3 Fatty Acids (FISH OIL) 1200 MG Capsule [...] 2019 Zoster Immunization (1 of 2) 2019 SARS-COV-2 Immunization (1 - 2023- season) 2024 Influenza Immunization (Seas on Ended) 2025 Respiratory Syncytial Virus (RSV) Immunization (Adult) (1 - 1-dose 75+ series) 2044 Human Papillomavirus (HPV) Immunization Aged Out No longer eligible b ased on patient's age to complete this topic Meningococcal Immunization (ACWY) Aged Out No longer eligible based on patient's age to complete this topic Rotavirus Immunization Aged Out No lo nger eligible based on patient's age to complete this topic Insurance MEDICAID [place] MEDICARE C [place] Care Teams Hvac Design Engineer Relationship Specialty Start Date End Date Provider, None [place] PCP - General 01/26/22
--- OUTSIDE RECORDS SUMMARY | 2025-03-22 14:15 | XMS_ITS | Continuity of Care Document ---
Author Organization [facility] Address [address] [place] [address] Phone Care Team Providers Care Post Doc Fellowship Name Role Phone Bernardo Narvaez MD Unavailable [...] Diagnoses Date Provider Providers Copied on Encounter [facility], [address] [place] [address] [address], [place], [place], [id number], [place] tel:[phone] SEC Carrie KSENIA Professional Complete Exam (chief complaint) History of cellulitisAge -related nuclear cataract, bilateralType 2 diabetes mellitus without complications Apr-0 - 9 Brice Chang. [address], [place], [place], [id number], [place]. tel:[phone] Other Provider:, [address], [place], [address]. tel:[phone] ring Provider: Bernardo Reese, [address], [place], [address]. tel:[phone] Office/outpa tient Visit, [facility], [address] [place] [address] [address], [place], [place], [id number], [place] tel:[phone] SEC Ignacio MCCORMACK Professional Follow up visit (chief complaint) Hordeolum externum of left upper eyelidPresept al cellulitis of left upper eyelid Oct-0 8 Brice Chang. [address], [place], [place], [address], [place]. tel:[phone] Referring Provider: Bernardo Reese [address], [place], [address]. tel:[phone] Office/outpa tient Visit, [facility], [address] [place] [address] [address], [place], [place], [address], [place] tel:[phone] SEC Ignacio MCCORMACK Professional Evaluation of possible cyst (chief complaint) Preseptal cellulitis of left upper eyelidHordeol um externum of left upper eyelid Sep-2 8 Brice Chang. [address], [place], [place], [address], [place]. tel:[phone] Referring Provider: Veronica [address] [facility] [address], [place], [address]. tel:[phone] Family History Family Member Type Diagnosis Age At Onset Problem (finding) Family history of Diabe colt mellitus Payers Payer name Insurance type Covered libertarian ID Authoriza tion(s) Medicare [facility] [id number] Medicaid [facility] [id number] Social History Type Description Quantity Date Captured [...]
--- OUTSIDE RECORDS SUMMARY | 2025-03-22 14:15 | XMS_ITS | Encounter Summary ---
Author Organization [facility] Healthcare Address [facility] [place] [address] Care Team Providers Care Farm Equipment Technician Name Role Phone Augustine Sims Primary Care Provider Ashok Hammer MD Primary Care Provider [phone] Encounter Details Date Type Department Care Team (Late st Contact Info) Description 04/20/[address] [address] Sandi Sidhu, [facility] Social History Tobacco Use Types Packs/Day Years Used Date Smoking Tobacco: Never Sex and Gender Information Value Date Recorded Sex Assigned at Not on file Legal Sex Male 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
[2025-03-22 15:13] LABS: Hematocrit 38.7 % (42.0-52.0); Hemoglobin 12.5 g/dL (14.0-18.0); Mean Corpuscular HGB Conc 32.3 g/dl (32-36); Mean Corpuscular Hemoglobin 29.1 pg (26-34); Mean Corpuscular Volume 90.2 fl (80-100); Mean Platelet Volume 10.1 fl (7.4-10.4); Platelet Count Result 217 k/mm3 (150-375); Red Blood Count 4.29 M/mm3 (4.6-6.20); Red Cell Distribution Width 13.1 % (11.5-14.5); White Blood Count 9.4 K/mm3 (4.5-10.0)
[2025-03-22 15:55] LABS: Vitamin D 25 Hydroxy 40.8 ng/mL
[2025-03-22 16:55] LABS: Hemoglobin A1C 7.9 % (<5.7)
[2025-03-22 17:39] LABS: Alanine Aminotransferase 23 U/L (6-50); Albumin Level 4.5 g/dL (3.5-5.1); Alkaline Phosphatase 90 U/L (38-126); Anion Gap 12 mmol/L (4-12); Aspartate Amino Transferase 30 U/L (17-59); Blood Urea Nitrogen 32 mg/dL (9-20); Calcium 10.1 mg/dL (8.4-10.2); Carbon Dioxide 26 mmol/L (22-30); Chloride 102 mmol/L (98-107); Estimated Glomerular Filt Rate > 60; Glucose 151 mg/dL (65-110); Potassium 4.5 mmol/L (3.4-5.0); Sodium 140 mmol/L (137-145); Total Protein 8.4 g/dL (6.3-8.2)
== END 2025-03-22 14:12 | disposition home or self-care (01) ==
PROVIDERS: PCP Family Medicine; Visit Provider Family Medicine
DX: I89.0 Lymphedema, not elsewhere classified (principal); R25.1 Tremor, unspecified; I25.10 Atherosclerotic heart disease of native coronary artery without angina pectoris; G47.33 Obstructive sleep apnea (adult) (pediatric); E66.01 Morbid (severe) obesity due to excess calories; R79.89 Other specified abnormal findings of blood chemistry; I10 Essential (primary) hypertension
CPT/HCPCS: 36415; 80053; 82306; 82607; 83036; 85027

== ENCOUNTER 2025-08-15 15:18 | Outpatient (CLI) | payer MEDICARE, MEDICAID, SELFPAY ==
--- OUTSIDE RECORDS SUMMARY | 2019-01-22 08:00 | XMS_ITS | Continuity of Care Document ---
Author Organization [employer] [facility] [place] [address] [address] [place] [address] Phone Care Team Providers Care Security Tech Name Role Phone Bernardo Narvaez MD Unavailable Unavailable Allergies, Adverse Reactions, Alerts Substance Reaction Status Criticality No Known Allergies Active No Inform ation Medications Medication Instructions Dosage Effective Dates (start - stop) Status Comments furosemide 40 mg tablet take 3 tablet by oral route every day 120 MG - Active lisinopril 40 mg tablet take 1 tablet by oral route every day 40 MG - Active metformin ER 1,000 mg tablet,extended release 24hr take 1 tablet by oral route 2 times every day with the evening meal 1000 MG - Active Lantus Solostar U-100 Insulin 100 unit/mL (3 mL) subcutaneous pen inject by subcutaneous route as per insulin protocol 0.00 - Active Humalog KwikPen (U-100) Insulin 100 unit/mL subcutaneous inject by subcutaneous route per prescriber's instructions. Insulin dosing requires individualization. 0.00 - Active atorvastatin 20 mg tablet take 1 tablet by oral route every day 20 MG - Active atenolol 50 mg tablet take 1 tablet by oral route every day 50 MG - Active lisinopril 20 mg-hydrochlorothiaz will 25 mg tablet take 1 tablet by oral route 2 times every day 1 tablet - No Longer Active lisinopril 20 mg tablet take 1 tablet by oral route every day 20 MG - No Longer Active Procedures Procedure Date Eye Exam & Treatment Office/outpatient Visit, Est Removal Of Chalazion Office/outpatient Visit, New Advance Directives Directive Yes / No Effective Date File Name No Information Encounters Encounter Description Practice Location Reason(s) For Visit Diagnoses Date Provider Providers Copied on Encounter [facility], [address] [place] [address] [address], [place], [place], [id number], [place] tel:[phone] SEC Charlotte KSENIA Professional Complete Exam (chief complaint) History of cellulitisAge -related nuclear cataract, bilateralType 2 diabetes mellitus without complications Apr-0 - 9 Brice Chang. [address], [place], [place], [address], [place]. tel:[phone] Other Provider:, [address], [place], [address]. tel:[phone] ring Provider: Bernardo Reese, [address], [place], [address]. tel:[phone] Office/outpa [place]ient Visit, [facility] [place], [address] [place] [address] [address], [place], [place], [address], [place] tel:[phone] SEC Ignacio MCCORMACK Professional Follow up visit (chief complaint) Hordeolum externum of left upper eyelidPresept al cellulitis of left upper eyelid Oct-0 8 Brice Chang. [address], [place], [place], [address], [place]. tel:[phone] Referring Provider: Bernardo Reese [address], [place], [address]. tel:[phone] Office/outpa tient Visit, [facility], [id number] [place] [address] [address], [place], [place], [address], [place] tel:[phone] SEC Ignacio MCCORMACK Professional Evaluation of possible cyst (chief complaint) Preseptal cellulitis of left upper eyelidHordeol um externum of left upper eyelid Sep-2 8 Brice Chang. [address], [place], [place], [address], [place]. tel:[phone] Referring Provider: Veronica Peterson[address] [facility] [address], [place], [address]. tel:[phone] Family History Family Member Type Diagnosis Age At Onset Problem (finding) Family history of Diabe colt mellitus Payers Payer name Insurance type Covered constitution party ID Authoriza tion(s) Medicare [facility] [id number] Medicaid [facility] [id number] Social History Type Description Quantity Date Captured Comments Alcohol Use Details No Caffeine Use Details Tobacco Use Status Current non-smoker 19 Smoking Status Never smoker Non-Smoking Tobacco Use Details : No Details Available : No Details Available Sex Male Chief Complaint And Reason For Visit From encounter dated '01/22/2019 13:00'. Complete Exam (chief complaint). Description: The 48 year old male presents for evaluation of Complete Exam in the right eye and left eye. Hx of Cataracts OU, Hordeolum PORTILLO, and Preceptal Cellulitis PORTILLO. Pt states vision is clear and stable OU at distance and near x 3-4 mos, with new Specs. Reason For Referral Reason For Referral No Information Plan Of Treatment Date Type Action Status Patient Education Cataracts: Care Instruc tions completed Patient Education Learning About Your Eye s completed History Of Present Illness Encounter Date Complaint History Of Prese nt Illness Complete Exam The 48 year old male presents for evaluation of Complete Exam in the right eye and left eye. Hx of Cataracts OU, Hordeolum PORTILLO, and Preceptal Cellulitis PORTILLO. Pt states vision is clear and stable OU at distance and near x 3-4 mos, with new Specs. Follow up visit The 47 year old male presents for a 2 week follow up s/p I&D PORTILLO. Patient is finished with drops and Augmentin. Patient states OS is doing good. Evaluation of possible cyst The 47 year old male presents for evaluation of Evaluation of possible cyst in the left eye. Pt denies any ocular injuries or Sx, OU. Pt is DM II. Pt reports he has a bump/stye on PORTILLO x 3 wks and it hurts. Pt reports he went to the ER about a week ago and got Tobradex using it QD-BID OS. Pt reports he thought it was getting a little better 2 days ago, but then it got worse again. Pt reports he thought it was better again last night, but flared up again this am. Functional Status Date Functional Assessmen t No Information Instructions Date Instruction Additional Infor cullen Impression/Plan Impression/Plan Educational material given Relat ed to Chalazion of left upper eyelid Impression/Plan Assessments Type Assessment Date assessment History of cellulitis 9 assessment Age-related nuclear cataract, bi lateral assessment Type 2 diabetes mellitus without complications Patient Care Teams Name Effective Dates (start - stop) Status Members No Information
--- NOTE | ~2025-08-15 | CT_ITS ---
PROCEDURE(S): CT paranasal sinuses without contrast COMPARISON(S): None. 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 Both middle turbinates are paradoxical. 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 Both ostiomeatal complexes are patent. There is moderate nasal septal deviation to the left. There is a 14 mm polyp versus mucous retention cyst in the right ethmoid sinuses. The remainder of the sinuses are clear. IMPRESSION: Small polyp versus mucous retention cyst as described. Reviewed, dictated and finalized at location A.
--- OUTSIDE RECORDS SUMMARY | 2025-08-15 16:51 | XMS_ITS | Clinical Summary ---
Author Organization [facility] Address [address] [place] [address] Phone Care Team Providers Care Inside Polisher Name Role Phone Provider, None Primary Care [...] 85 Units by Subcutaneous route nightly. Active [place]-3 Fatty Acids (FISH OIL) 1200 MG Capsule [...] of 3 - 19+ 3-dose series) 1988 Medicare Initial AWV [id number] 03/20/2014 Cologuard 2014 Colonoscopy 2014 Colorectal Cancer Screening 2014 Immunochemical Fecal Occult Blood 2014 Pneumococcal Immunization (5 0+ years) (1 of 1 - PCV) 2019 Zoster Immunization (1 of 2) 2019 Influenza Immunization (#1) 2025 SARS-COV-2 Immunization (1 - 2023- season) 2025 Respiratory Syncytial Virus (RSV) Immunization (Adult) [...] MEDICAID [place] MEDICARE C [place] Care Teams Inside Polisher Relationship Specialty Start Date End Date Provider, None [place] PCP - General 01/26/22
--- OUTSIDE RECORDS SUMMARY | 2025-08-15 16:51 | XMS_ITS | Encounter Summary ---
Author Organization [facility] Healthcare Address [address] [place] [address] Care Team Providers Care Manager Career Name Role Phone Augustine Sims Primary Care Provider [phone] Ashok Hammer MD Primary Care Provider [phone] Encounter Details Date Type Department Care Team (Late st Contact Info) Description 04/20/2020 Telephone [facility] [address] [place] [address] Sandi Sidhu, [facility] Social History Tobacco Use Types Packs/Day Years Used Date Smoking Tobacco: Never Sex and Gender Information Value Date Recorded Sex Assigned at Not on file Legal Sex Male 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
--- OUTSIDE RECORDS SUMMARY | 2025-08-15 16:51 | XMS_ITS | Clinical Summary ---
Author Organization [facility] Address [address] [place] [address] Care Team Providers Care Recovery Specialist Name Role Phone Ashok Hammer MD Primary Care Provider [phone] Allergies Active Allergy Reactions Criticality Noted Date Comments Iodine Anaphylaxis High 04/12/2025 Shellfish Containing Products Anaphylaxis High Medications allopurinoL (ZYLOPRIM) 100 mg tablet Take [...] mcg total) by mouth daily Active omega 9-kwl-ldj-fish oil 1,000 mg (120 mg-180 mg) capsule [...] under the skin daily before dinner Active propranolol LA (INDERAL LA) 160 mg 24 hr capsuleIndicatio ns:Tremor Take 1 capsule (160 mg total) by mouth daily 30 capsule 3 5 Active topiramate (TOPAMAX) 50 mg tablet Take half tablet (25 mg) po twice a day for one week, then one tablet po twice a day 60 tablet 3 5 Active amoxicillin (AMOXIL) 875 mg tabletIndication s:Non-recurrent acute serous otitis media of both ears Take 1 tablet (875 mg total) by mouth 2 (two) times a day for 7 days 14 tablet 5 07/26/20 25 Active Problems Problem Noted Date Diagnosed Date Essential tremor 04/17/2025 Right upper quadrant pain 06/22/2024 Assessment & [...] Encounters Date Type Department Care Team Description 07/19/2025 3:45 PM CDT Office Visit [facility]ient Care at [address] [place] [address] Staci Garzon NP Non-recurrent acute serous otitis media of both ears (Primary Dx); Nasal dryness from Last 3 Months Surgical History Surgery Date Site/Laterality Comments NO PAST SURGERIES Medical History Medical History Date Comments Type 2 diabetes mellitus, wi thout long-term current use of insulin 06/22/2024 Hypertension Class 3 severe obesity with body mass index (BMI) of 50.0 to 59.9 in adult 06/22/2024 Essential hypertension 06/22/2024 OANH treated with BiPAP 06/22/2024 Chews tobacco 06/22/2024 Lymphedema of both lower extremities 06/22/2024 Social History Tobacco Use Types Packs/Day Years Used Date Smoking Tobacco: Never Smokeless Tobacco: Current Chew Tobacco Cessation:Ready to Q uit: Not Asked; Counseling Given: Not Answered [facility] Utilities Answer Date Recorded In the past 12 months has th e electric, gas, oil, or water [employer] threatened to shut off services in your home? No 06/22/2024 Social Connection and Isolation Panel Answer Date Recorded In a typical week, how many times do you talk on the phone with family, friends, or neighbors? Twice a week 06/22/20 How often do you get togethe r with friends or relatives? Twice a week 06/22/2024 How often do you attend [facility] or alevism services? Never 06/22/2024 Do you belong to [...] any time in the past 12 m [facility], were you homeless or living in a jail (including now)? No 06/22/2024 Personal Safety Answer Date Recorded Have you ever been in or are you currently in a harmful physical or emotional relationship or is someone making you feel afraid or unsafe? 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 Gender Identity Not on file Sexual Orientation Not on file Obstetrics History Last Filed Vital Signs Vital Sign Reading Time Taken Comments Blood Pressure 128/70 07/19/2025 3:48 PM CDT Pulse 100 07/19/2025 3:48 PM CDT Temperature 36.8 C (98.2 F) 07/19/2025 3:48 PM CDT Respiratory Rate 20 07/19/2025 3:48 PM CDT Oxygen Saturation 95% 07/19/2025 3:48 PM CDT Inhaled Oxygen Concentration - - Weight 187.3 kg (413 lb) 07/19/2025 3:48 PM CDT Height 182.9 cm (6') 07/19/2025 3:48 PM CDT Body Mass Index 56.01 07/19/2025 3:48 PM CDT Plan of Treatment Health Maintenance [...] 2019 Hemoglobin A1C 12/20/2024 06/22/2024 Influenza Vaccine (#1) 2025 eGFR 06/23/2025 06/23/2024, 12/2023, 06/21/2024, Additional history exists Procedures Procedure [...] ORDERABLES Fin al Result Performing Organization Address [facility] Co de Phone Number [facility] ([place]) 1 [facility] [place] [address] * (ABNORMAL) Hemoglobin A1c (06/22/2024 4:32 AM CDT) Hgb A1C 6.7(H) 4.0 - 5.6 % Estimated Average Glucose 146 mg/dL [facility] BRENDA ([place]) Comment: The ADA recommends reporting an estimated Average Glucose (eAG) with all Hemoglobin A1c results using the equation derived from a study of 507 normal and diabetic adults. Minority populations were underrepresented and children were not included. (Diabetes Care 31:4120-3935, 2008). The eAG is not equivalent to a fasting glucose. Blood 06/22/2024 4:32 AM CDT 06/22/2024 4:45 AM CDT Selam Garcia MD LAB BLOOD ORDERABLES Fin al Result Performing Organization Address [facility] Co de Phone Number [facility] ([place]) [address] [facility] [place] [address] from Last 3 Months or Most Recently Relevant to Health Maintenance Insurance IDPA MEDICARE IDPA [employer] MEDICARE ADVANTAGE IDPA Advance Directives For more information, please contact: [phone] * Full Code (Latest Code Status on File) Date Activated Date Inactivated Comments 06/22/2024 3:25 AM 06/23/2024 9:17 PM Care Teams Recovery Specialist Relationship Specialty Start Date End Date Ashok Hammer MD PCP - General Family Practice 06/21/24
== END 2025-08-15 15:19 | disposition home or self-care (01) ==
PROVIDERS: PCP Family Medicine; Visit Provider Otolaryngology
DX: J32.9 Chronic sinusitis, unspecified (principal); J34.89 Other specified disorders of nose and nasal sinuses
CPT/HCPCS: 70486

== ENCOUNTER 2025-10-11 11:26 | Outpatient (CLI) | payer MEDICARE, MEDICAID, SELFPAY ==
--- OUTSIDE RECORDS SUMMARY | 2025-10-11 11:51 | XMS_ITS | Encounter Summary ---
Author Organization [facility] Healthcare Address [address] [place] [address] Care Team Providers Care String Top Sealer Name Role Phone Augustine Sims Primary Care Provider [phone] Ashok Hammer MD Primary Care Provider [phone] Encounter Details Date Type Department Care Team (Late st Contact Info) Description 04/20/2020 Telephone [facility] [address] [place] [phone] Sandi Sidhu, [facility] Social History Tobacco Use Types Packs/Day Years Used Date Smoking Tobacco: Never Sex and Gender Information Value Date Recorded Sex Assigned at Not on file 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
--- OUTSIDE RECORDS SUMMARY | 2025-10-11 11:51 | XMS_ITS | Clinical Summary ---
Author Organization [facility] Address [address] [place] [address] Phone Care Team Providers Care Timber Watchman Name Role Phone Provider, None Primary Care [...] 85 Units by Subcutaneous route nightly. Active Mulberry-3 Fatty Acids (FISH OIL) 1200 MG Capsule [...] Immunization (#1) 2025 SARS-COV-2 Immunization (1 - 2024- season) 2025 Respiratory Syncytial Virus (RSV) Immunization (Adult) (1 - 1-dose 75+ series) 2044 Human Papillomavirus (HPV) Immunization (No Doses Required) Completed Meningococcal Immunization (ACWY) Aged Out No longer eligible based on patient's age to complete this topic Rotavirus Immunization Aged Out No lo nger eligible based on patient's age to complete this topic Insurance MEDICAID [place] MEDICARE C [place]AS Care Teams Timber Watchman Relationship Specialty Start Date End Date Provider, None [place] PCP - General 01/26/22
--- OUTSIDE RECORDS SUMMARY | 2025-10-11 11:51 | XMS_ITS | Clinical Summary ---
Author Organization [facility] Address [address] [place] [address] Care Team Providers Care Commercial Collector Name Role Phone Ashok Hammer MD Primary Care Provider [phone] Allergies Active Allergy Reactions Criticality Noted Date [...] mcg total) by mouth daily Active omega 9-beh-fsd-fish oil 1,000 mg (120 mg-180 mg) capsule [...] a day 60 tablet 3 5 Active Active Problems Problem Noted [...] mg po qhs Type 2 diabetes mellitus, [facility] long-term current use of insulin 06/22/2024 Assessment [...] Description 07/19/2025 3:45 PM CDT Office Visit [facility] Medical Group Convenient Care at [address] [address] Staci Garzon NP Non-recurrent acute serous [...] uit: Not Asked; Counseling Given: Not Answered [facility] Utilities Answer Date Recorded In the past 12 months has th e electric, gas, oil, or water company threatened to [...] week 06/22/2024 How often do you attend [facility] ch or [facility] services? Never 06/22/2024 Do you belong to any clubs o r organizations such as hoahaoism groups, unions, fraternal or athletic groups, or [...] any time in the past 12 m [facility], were you homeless or living in a mcc (including now)? No 06/22/2024 Personal Safety Answer Date Recorded Have you ever been in or are you currently in a harmful physical or emotional relationship or is someone making you feel afraid or unsafe? 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 Gender Identity Not on file Sexual Orientation [...] Influenza Vaccine (#1) 2025 eGFR 06/23/2025 06/23/2024, 09/0 12/2023, 06/21/2024, [...] ORDERABLES Fin al Result Performing Organization Address [facility] Co de Phone Number [facility] ([place]) 1 [facility] [place] [address] * (ABNORMAL) Hemoglobin A1c (06/22/2024 4:32 AM CDT) Hgb A1C 6.7(H) 4.0 - 5.6 % Estimated Average Glucose 146 mg/dL [facility] GUTIERREZ ([place]) Comment: The ADA recommends reporting an estimated Average Glucose (eAG) with all Hemoglobin A1c results using the equation derived from a study of 507 normal and diabetic adults. Minority populations were underrepresented and children were not included. (Diabetes Care 31:5954-2078, 2008). The eAG is not equivalent to a fasting glucose. Blood 06/22/2024 4:32 AM CDT 06/22/2024 4:45 AM CDT Selam Garcia MD LAB BLOOD ORDERABLES Fin al Result Performing Organization Address [facility] Co de Phone Number [facility] ([place]) 1 [facility] [place] [address] from Last 3 Months or Most Recently Relevant to Health [place] [address] MEDICARE IDPA [facility] MEDICARE ADVANTAGE IDPA Advance Directives For more information, please contact: [phone] * Full Code (Latest Code Status on File) Date Activated Date Inactivated Comments 06/22/2024 3:25 AM 06/23/2024 9:17 PM Care Teams Commercial Collector Relationship Specialty Start Date End Date Ashok Hammer MD PCP - General Family Practice 06/21/24
[2025-10-11 12:30] LABS: Alanine Aminotransferase 32 U/L (6-50); Albumin Level 4.1 g/dL (3.5-5.1); Alkaline Phosphatase 108 U/L (38-126); Anion Gap 12 mmol/L (4-12); Aspartate Amino Transferase 34 U/L (17-59); Bilirubin,Total 0.9 mg/dL (0.2-1.3); Blood Urea Nitrogen 27 mg/dL (9-20); Calcium 9.2 mg/dL (8.4-10.2); Carbon Dioxide 19 mmol/L (22-30); Chloride 105 mmol/L (98-107); Estimated Glomerular Filt Rate > 60; Glucose 354 mg/dL (65-110); Potassium 4.5 mmol/L (3.4-5.0); Sodium 136 mmol/L (137-145); Total Protein 7.7 g/dL (6.3-8.2)
[2025-10-11 13:03] LABS: MALB Creatinine Ratio 26.0 mg/g (0-30)
== END 2025-10-11 11:27 | disposition home or self-care (01) ==
PROVIDERS: PCP Family Medicine; Visit Provider Family Medicine
DX: E11.65 Type 2 diabetes mellitus with hyperglycemia (principal); Z79.4 Long term (current) use of insulin; Z00.00 Encounter for general adult medical examination without abnormal findings
CPT/HCPCS: 36415; 80053; 82043

== ENCOUNTER 2025-10-18 11:05 | Outpatient (CLI) | payer MEDICARE, MEDICAID, SELFPAY ==
--- OUTSIDE RECORDS SUMMARY | 2025-10-18 11:51 | XMS_ITS | Clinical Summary ---
Author Organization [facility] Address [address] [place] [address] Phone Care Team Providers Care Investigator Narcotics Name Role Phone Provider, None Primary Care [...] 85 Units by Subcutaneous route nightly. Active Wells-3 Fatty Acids (FISH OIL) 1200 MG Capsule [...] MEDICAID NAVAS MEDICARE C NAVAS Care Teams Investigator Narcotics Relationship Specialty Start Date End Date Provider, None [place] PCP - General 01/26/22
--- OUTSIDE RECORDS SUMMARY | 2025-10-18 11:51 | XMS_ITS | Encounter Summary ---
Author Organization [facility] Healthcare Address [address] [place] [address] Care Team Providers Care Camp Counselor Name Role Phone Augustine Sims Primary Care Provider [phone] Ashok Hammer MD Primary Care Provider [phone] Encounter Details Date Type Department Care Team (Late st Contact Info) Description 04/20/2020 Telephone [facility] [address] [place] [id number] Sandi Sidhu, [facility] Social History Tobacco Use Types Packs/Day Years Used Date Smoking Tobacco: Never Sex and Gender Information Value Date Recorded Sex Assigned at Not on file 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
--- OUTSIDE RECORDS SUMMARY | 2025-10-18 11:51 | XMS_ITS | Clinical Summary ---
Author Organization [facility] Address [address] [place] [address] Care Team Providers Care Flight Service Specialist Name Role Phone Ashok Hammer MD Primary Care Provider [phone] Allergies Active Allergy Reactions Criticality Noted Date [...] mcg total) by mouth daily Active omega 2-agy-cjx-fish oil 1,000 mg (120 mg-180 mg) capsule [...] mg po qhs Type 2 diabetes mellitus, [facility] long-term current use of insulin 06/22/2024 Assessment [...] Description 07/19/2025 3:45 PM CDT Office Visit [facility] Medical Group Convenient Care at [address] [address] Staci Garzon NP Non-recurrent acute [...] uit: Not Asked; Counseling Given: Not Answered [facility] Utilities Answer Date Recorded In the past [...] week 06/22/2024 How often do you attend [facility] medical center ch or scientology services? Never 06/22/2024 Do you belong to any clubs o r organizations such as evangelical groups, unions, fraternal or athletic groups, or [...] any time in the past 12 m [facility], were you homeless or living in a care home (including now)? No 06/22/2024 Personal Safety Answer Date Recorded Have you ever been in or are you currently in a harmful physical or emotional relationship or is someone making you feel afraid or unsafe? 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 Gender Identity Not on file Sexual Orientation [...] ORDERABLES Fin al Result Performing Organization Address [facility] Co de Phone Number [facility] ([place]) 1 [facility] [place] [address] * (ABNORMAL) Hemoglobin A1c (06/22/2024 4:32 AM CDT) Hgb A1C 6.7(H) 4.0 - 5.6 % Estimated Average Glucose 146 mg/dL [facility] GUTIERREZ ([place]) Comment: The ADA recommends reporting an estimated Average Glucose (eAG) with all Hemoglobin A1c results using the equation derived from a study of 507 normal and diabetic adults. Minority populations were underrepresented and children were not included. (Diabetes Care 31:0846-8692, 2008). The eAG is not equivalent to a fasting glucose. Blood 06/22/2024 4:32 AM CDT 06/22/2024 4:45 AM CDT Selam Garcia MD LAB BLOOD ORDERABLES Fin al Result Performing Organization Address [facility] Co de Phone Number [facility] ([place]) 1 [facility] [place] [address] from Last 3 Months or Most Recently Relevant to Health [place] [address] MEDICARE IDPA [facility] MEDICARE ADVANTAGE IDPA Advance Directives For more information, please contact: [phone] * Full Code (Latest Code Status on File) Date Activated Date Inactivated Comments 06/22/2024 3:25 AM 06/23/2024 9:17 PM Care Teams Flight Service Specialist Relationship Specialty Start Date End Date Ashok Hammer MD PCP - General Family Practice 06/21/24
== END 2025-10-18 11:06 | disposition home or self-care (01) ==
PROVIDERS: PCP Family Medicine; Visit Provider Otolaryngology
DX: H90.3 Sensorineural hearing loss, bilateral (principal); H92.03 Otalgia, bilateral; H93.8X1 Other specified disorders of right ear; H93.13 Tinnitus, bilateral; Z86.69 Personal history of other diseases of the nervous system and sense organs
CPT/HCPCS: 92557; 92567